=== PATIENT | female | born 1985 | race Caucasian/White ===

== ENCOUNTER 2016-10-29 10:30 | Emergency (ER) | payer MEDICAID ==
[~2016-10-29] VITALS: Ht 154.9 cm; Wt 96.2 kg
[~2016-10-29 10:30] MED LIST: NOMEDS *; TRAMADOL 50MG T50 MG PO
[2016-10-29] MEDS ORDERED: KEFLEX 500MG.500 MG PO (10:56)
[2016-10-29] MEDS ORDERED: PERCOGESIC1 TAB PO (10:57)
--- NOTE | 2016-10-29 10:58 | Emergency Room Report ---
History of Present Illness Time Seen by [id number] Presenting Problem in Triage Pt arrived:Walked Presenting Problem:STATES THAT SHE THINKS THAT SHE HAS AN INFECTION IN HER TOOTH. 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 N Clinical Suspician of Infection? N Mental Status: 1 - Regular (Normal Baseline) Sepsis Risk:Low Sepsis Risk Have you (or family members/close friends) recently traveled outside the [place]? N If Yes, where/when: Have you had exposure to infectious disease within the past month? N TB? Other? Specify: Source patient, RN notes reviewed, RN/MD Exam Limitations no limitations Comment This is a 31-year-old lady that just moved into the [facility] presenting to the emergency room with dental pain. She has extensive dental decay, LEFT untreated for many years. Patient stated she has no financial resources to go to the dentist, nor does she have insurance. ALLERGIES Coded Allergies: NO KNOWN ALLERGIES (10/29/16) History Medical History General CAD? No Angina: No [place]: No Hypertension? No Hyperlipidemia? No CHF? No DVT? No PE? No COPD? No Asthma? No Anemia? No GERD? No Gastric ulcers? No GI Bleed? No Hernia? No Thyroid Problems? No Hypothyroidism? No CVA? No Seizures? No Diabetes? No Renal Insuffiency? No End Stage Renal Disease? No UTI? No Stones? No BPH? No GB Disease: No Nephritic Syndrome? No Asplenia? No Hepatitis? No Sickle Cell Disease? No Arthritis? No Migraines? No Cataracts? No Glaucoma? No MRSA? No HIV? No TB? No Anxiety? No Depression? No Cancer? No More? 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 Physical Exam Vital Signs Vital Signs Date Time Temp Pulse Resp B/P Pulse O2 O2 Flow FiO2 Ox Delivery Rate 10/29 1102 98.3 94 18 132/79 98 10/29 1101 98.3 94 18 132/79 98 10/29 1034 98.3 94 18 132/79 98 General Appearance normal appearance, WD/WN, mild distress Ear, Nose, Throat hearing grossly normal, extensive dental decay, and most of her teeth, mostly reduced to just the stumps. There is a 1-year-old gingivitis, with mild gingival swelling, no drainage. Respiratory Status Yes: trachea midline, chest symmetrical, non tender chest. No: respiratory distress. Lung Sounds bilateral: normal breath sounds, lungs clear. 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 No Comment Advised patient to follow-up with any of local dentists, at her earliest convenience. She will be discharged home on pain medications and antibiotics at this time. As an alternative I offered directions and phone numbers for [facility] urgent care treatment center where she can be seen any day between 7:30am-9:00am. Departure Departure Time of Disposition 1054 Disposition DC Home or Self Care(routine) Clinical Impression Primary Impression: Dental decay Condition STABLE Referrals CHUCHO KIMBLE DMD,MARIZOL ALMANZA,NIDA Welch DMD,KELSEY Sanders,CARMEN VEGA Patient Instructions DI for Tooth Decay Additional Instructions Please follow-up with either one of the dentist listed above. Another option would be to be seen at one of the [facility] affiliated with [facility] (please see attached report for details). Receiving antibiotics and pain medications as directed until seen by the dentist. Discharge Counseling Counseled pt/family regarding diagnosis, medications/RX, home care, follow up needs Comment Please follow-up with either one of the dentist listed above. Another option would be to be seen at one of the [facility] affiliated with [facility] (please see attached report for details). Receiving antibiotics and pain medications as directed until seen by the dentist. Prescriptions Current Visit Scripts CEPHALEXIN (Keflex 500MG Capsule) 500 MG PO QID #40 CAP ACETAMINOPHEN/DIPHENHYDRAMINE (Percogesic 325-12.5 MG Tablet) 1 TAB PO QIDP PRN pain #40 TAB ED Critical Care Critical Care No at [id number]
--- NOTE | 2016-10-29 10:58 | Emergency Room Report ---
History of Present Illness Time Seen by [id number] Presenting Problem in Triage Pt arrived:Walked Presenting Problem:STATES THAT SHE THINKS THAT SHE HAS AN INFECTION IN HER TOOTH. 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 N Clinical Suspician of Infection? N Mental Status: 1 - Regular (Normal Baseline) Sepsis Risk:Low Sepsis Risk Have you (or family members/close friends) recently traveled outside the [place]? N If Yes, where/when: Have you had exposure to infectious disease within the past month? N TB? Other? Specify: Source patient, RN notes reviewed, RN/MD Exam Limitations no limitations Comment This is a 31-year-old lady that just moved into the [facility] presenting to the emergency room with dental pain. She has extensive dental decay, LEFT untreated for many years. Patient stated she has no financial resources to go to the dentist, nor does she have insurance. ALLERGIES Coded Allergies: NO KNOWN ALLERGIES (10/29/16) History Medical History General CAD? No Angina: No [place]: No Hypertension? No Hyperlipidemia? No CHF? No DVT? No PE? No COPD? No Asthma? No Anemia? No GERD? No Gastric ulcers? No GI Bleed? No Hernia? No Thyroid Problems? No Hypothyroidism? No CVA? No Seizures? No Diabetes? No Renal Insuffiency? No End Stage Renal Disease? No UTI? No Stones? No BPH? No GB Disease: No Nephritic Syndrome? No Asplenia? No Hepatitis? No Sickle Cell Disease? No Arthritis? No Migraines? No Cataracts? No Glaucoma? No MRSA? No HIV? No TB? No Anxiety? No Depression? No Cancer? No More? 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 Physical Exam Vital Signs Vital Signs Date Time Temp Pulse Resp B/P Pulse O2 O2 Flow FiO2 Ox Delivery Rate 10/29 1102 98.3 94 18 132/79 98 10/29 1101 98.3 94 18 132/79 98 10/29 1034 98.3 94 18 132/79 98 General Appearance normal appearance, WD/WN, mild distress Ear, Nose, Throat hearing grossly normal, extensive dental decay, and most of her teeth, mostly reduced to just the stumps. There is a 1-year-old gingivitis, with mild gingival swelling, no drainage. Respiratory Status Yes: trachea midline, chest symmetrical, non tender chest. No: respiratory distress. Lung Sounds bilateral: normal breath sounds, lungs clear. 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 No Comment Advised patient to follow-up with any of local dentists, at her earliest convenience. She will be discharged home on pain medications and antibiotics at this time. As an alternative I offered directions and phone numbers for [facility] urgent care treatment center where she can be seen any day between 7:30am-9:00am. Departure Departure Time of Disposition 1054 Disposition DC Home or Self Care(routine) Clinical Impression Primary Impression: Dental decay Condition STABLE Referrals CHUCHO KIMBLE DMD,MARIZOL ALMANZA,NIDA Welch DMD,KELSEY Sanders,CARMEN VEGA Patient Instructions DI for Tooth Decay Additional Instructions Please follow-up with either one of the dentist listed above. Another option would be to be seen at one of the [facility] affiliated with [facility] (please see attached report for details). Receiving antibiotics and pain medications as directed until seen by the dentist. Discharge Counseling Counseled pt/family regarding diagnosis, medications/RX, home care, follow up needs Comment Please follow-up with either one of the dentist listed above. Another option would be to be seen at one of the [facility] affiliated with [facility] (please see attached report for details). Receiving antibiotics and pain medications as directed until seen by the dentist. Prescriptions Current Visit Scripts CEPHALEXIN (Keflex 500MG Capsule) 500 MG PO QID #40 CAP ACETAMINOPHEN/DIPHENHYDRAMINE (Percogesic 325-12.5 MG Tablet) 1 TAB PO QIDP PRN pain #40 TAB ED Critical Care Critical Care No at [id number]
[2016-10-29 11:02] VITALS: BP 132/79
== END 2016-10-29 11:02 | disposition home or self-care (01) ==
LOC: ER 10:30
DX: K02.9 Dental caries, unspecified (principal)